=== PATIENT | female | born 1980 | race Caucasian/White ===

== ENCOUNTER → 2019-02-09 | Outpatient (REF) | payer BC ==
[2019-02-09 19:01] LABS: APPEARANCE, URINE CLEAR (CLEAR); BACTERIA, URINE AUTO NEGATIVE (NEGATIVE); BILIRUBIN, URINE AUTO NEGATIVE (NEGATIVE); BLOOD, URINE BLOOD NEGATIVE (NEGATIVE); COLOR, URINE STRAW (YELLOW); GLUCOSE, URINE (UA) AUTO NEGATIVE (NEGATIVE); KETONE, URINE AUTO TRACE mg/dL (NEGATIVE); LEUKOCYTE ESTERASE, URINE AUTO TRACE (NEGATIVE); NITRITE, URINE AUTO NEGATIVE (NEGATIVE); PROTEIN, URINE AUTO NEGATIVE (NEGATIVE); RBC, URINE AUTO 2 /HPF (0-3); SPECIFIC GRAVITY URINE AUTO 1.001 (1.002-1.035); SQUAMOUS EPITHELIAL CELL UR AU 1 /HPF (0-6); UROBILINOGEN, URINE AUTO 0.2 mg/dL (0.0-2.0); WBC, URINE AUTO 2 /HPF (0-3)
== END ==
LOC: M LAB REF 16:35
PROVIDERS: ATTEND Nurse Practitioner Women's Health
DX: N39.0 Urinary tract infection, site not specified (principal)

== ENCOUNTER → 2019-08-30 | Outpatient (CLI) | payer OTHER ==
--- NOTE | 2019-08-30 11:34 | REP ---
FIRST [facility]IME[facility] EMERGENCY OBSTETRIC SONOGRAPHY: HISTORY: Supervision of , evaluate for mass. Lower abdominal pain. No comparison study. FINDINGS: Transabdominal and transvaginal scanning are performed. Imaging confirms the presence of a living intrauterine single gestation. The embryonic pole measures 3 mm in crown-rump length. This corresponds with a gestational age estimate of 5 weeks 6 days. heart rate is recorded at 114 beats per minute. No subchorionic hemorrhage is seen. There is a 4.0 cm cyst in the maternal left adnexa. A 2.5 cm cystic area is seen in the right adnexa. No free fluid. No mass lesion is seen. IMPRESSION: Viable single intrauterine gestation at 5 weeks 6 days by crown-rump length. [place] by sonography April 25, 2020. 4.0 cm cyst in the left adnexa and 2.5 cm cyst in the right adnexa. Electronically Signed by Marcelino Sesay MD 08/30/2019 01:07 P
== END ==
LOC: M RAD 10:14
PROVIDERS: ATTEND Nurse Practitioner Family
DX: Z32.01 Encounter for pregnancy test, result positive (principal); Z3A.01 Less than 8 weeks gestation of pregnancy

== ENCOUNTER 2021-07-03 09:39 | Emergency (ER) | payer OTHER ==
[~2021-07-03] VITALS: Ht 182.9 cm; Wt 77.4 kg
[2021-07-03 10:18] LABS: BASO # 0.1 10^3/uL (0.0-0.2); BASO % 1.5 % (0.0-1.0); EOS # 0.1 10^3/uL (0.0-0.5); EOS % 1.4 % (0.0-3.0); LYMPH # 2.1 10^3/uL (1.5-5.0); LYMPH % 23.5 % (24.0-44.0); MEAN CORPUSCULAR HEMOGLOBIN 28.9 pg (27.0-33.0); MEAN CORPUSCULAR HGB CONC 31.6 g/dl (32.0-36.5); MEAN CORPUSCULAR VOLUME 91.6 fl (80.0-96.0); MONO # 0.6 10^3/uL (0.0-0.8); MONO % 6.4 % (2.0-8.0); NEUTROPHILS # 5.7 10^3/uL (1.5-8.5); NEUTROPHILS % 65.8 % (36.0-66.0); RED BLOOD COUNT 4.15 10^6/uL (4.00-5.40); WHITE BLOOD COUNT 8.7 10^3/uL (4.0-10.0)
[2021-07-03 10:34] LABS: PLATELET COUNT, AUTOMATED 2137 10^3/uL (150-450)
[2021-07-03 10:51] LABS: BLOOD UREA NITROGEN 7 MG/DL (7-18); CALCIUM LEVEL 9.4 MG/DL (8.5-10.1); CARBON DIOXIDE LEVEL 29 MEQ/L (21-32); CHLORIDE LEVEL 102 MEQ/L (98-107); CREATININE FOR GFR 0.76 MG/DL (0.55-1.30); GLOMERULAR FILTRATION RATE > 60.0 (>58); GLUCOSE, FASTING 92 MG/DL (70-100); POTASSIUM SERUM 5.2 MEQ/L (3.5-5.1); SODIUM LEVEL 134 MEQ/L (136-145)
[2021-07-03 11:38] LABS: HCG, SERUM QUALITATIVE NEGATIVE (NEGATIVE)
[2021-07-03] MEDS ORDERED: NS 1,000 ML IV ONE (12:00)
[2021-07-03 12:17] LABS: APPEARANCE, URINE CLEAR (CLEAR); BACTERIA, URINE AUTO 1+ (NEGATIVE); BILIRUBIN, URINE AUTO NEGATIVE (NEGATIVE); BLOOD, URINE BLOOD 2+ (NEGATIVE); COLOR, URINE RED (YELLOW); GLUCOSE, URINE (UA) AUTO NEGATIVE (NEGATIVE); KETONE, URINE AUTO NEGATIVE (NEGATIVE); LEUKOCYTE ESTERASE, URINE AUTO NEGATIVE (NEGATIVE); NITRITE, URINE AUTO NEGATIVE (NEGATIVE); PROTEIN, URINE AUTO 2+ mg/dL (NEGATIVE); RBC, URINE AUTO 78 /HPF (0-3); SPECIFIC GRAVITY URINE AUTO 1.004 (1.002-1.035); SQUAMOUS EPITHELIAL CELL UR AU 0 /HPF (0-6); UROBILINOGEN, URINE AUTO 0.2 mg/dL (0.0-2.0); WBC, URINE AUTO 6 /HPF (0-3)
[2021-07-03] MEDS ORDERED: LIDOCAINE 1% MDV 20ML VIAL As Ordered ONE (13:27)
[2021-07-03] MEDS ORDERED: LIDOCAINE 1% MDV 20ML VIAL SC ONE (13:30)
[2021-07-03 15:21] VITALS: BP 111/71
== END 2021-07-03 15:34 | disposition home or self-care (01) ==
LOC: M ED 09:39
DX: N99.820 Postprocedural hemorrhage of a genitourinary system organ or structure following a genitourinary system procedure (principal); N93.9 Abnormal uterine and vaginal bleeding, unspecified; R94.31 Abnormal electrocardiogram [ECG] [EKG]; Z88.1 Allergy status to other antibiotic agents

== ENCOUNTER → 2021-07-11 | Outpatient (REF) | payer OTHER ==
[2021-07-11 17:03] LABS: APPEARANCE, URINE CLEAR (CLEAR); BACTERIA, URINE AUTO NEGATIVE (NEGATIVE); BILIRUBIN, URINE AUTO NEGATIVE (NEGATIVE); BLOOD, URINE BLOOD 2+ (NEGATIVE); COLOR, URINE STRAW (YELLOW); GLUCOSE, URINE (UA) AUTO NEGATIVE (NEGATIVE); KETONE, URINE AUTO NEGATIVE (NEGATIVE); LEUKOCYTE ESTERASE, URINE AUTO 3+ (NEGATIVE); MUCUS, URINE SMALL (NEGATIVE); NITRITE, URINE AUTO NEGATIVE (NEGATIVE); PROTEIN, URINE AUTO NEGATIVE (NEGATIVE); RBC, URINE AUTO 3 /HPF (0-3); SPECIFIC GRAVITY URINE AUTO 1.001 (1.002-1.035); SQUAMOUS EPITHELIAL CELL UR AU 0 /HPF (0-6); UROBILINOGEN, URINE AUTO 0.2 mg/dL (0.0-2.0); WBC, URINE AUTO 18 /HPF (0-3)
== END ==
LOC: M LAB REF 16:20
PROVIDERS: ATTEND Obstetrics & Gynecology
DX: N39.0 Urinary tract infection, site not specified (principal)

== ENCOUNTER → 2022-08-26 | Outpatient (CLI) | payer OTHER | LOC: M WHC 10:51 | PROVIDERS: ATTEND Physician Assistant | DX: N64.4 Mastodynia (principal); Z80.3 Family history of malignant neoplasm of breast ==

== ENCOUNTER → 2023-11-10 | Outpatient (REF) | payer OTHER | LOC: M SFHCWAGY 09:58 | PROVIDERS: ATTEND Nurse Practitioner Family | DX: Z12.4 Encounter for screening for malignant neoplasm of cervix (principal); Z11.51 Encounter for screening for human papillomavirus (HPV) ==

== ENCOUNTER → 2024-03-30 | Outpatient (CLI) | payer OTHER | LOC: M WHC 07:52 | PROVIDERS: ATTEND Nurse Practitioner Family | DX: Z12.31 Encounter for screening mammogram for malignant neoplasm of breast (principal); R92.333 Mammographic heterogeneous density, bilateral breasts ==

== ENCOUNTER → 2024-12-18 | Outpatient (CLI) | payer BC ==
[~2024-12-18] MED LIST: HYDR500C3 PO; NALT50TA4
== END ==
LOC: M RAD 08:29
PROVIDERS: ATTEND Specialist
DX: Z00.00 Encounter for general adult medical examination without abnormal findings (principal)

== ENCOUNTER → 2024-12-25 | Outpatient (CLI) | payer BC ==
[~2024-12-25] MED LIST changes: +ACAM0.05; +VITA100093
[2024-12-25 13:43] LABS: ESTRADIOL 21.1 PG/ML; PROLACTIN 5.15 NG/ML
[2024-12-25 13:44] LABS: LUTEINIZING HORMONE 29.1 mIU/ML; PROGESTERONE 0.34 NG/ML
[2024-12-27 15:43] LABS: HPV APTIMA Not Detected (Not Detected)
== END ==
LOC: M PLALAB 10:16
PROVIDERS: ATTEND Nurse Practitioner Family
DX: N91.1 Secondary amenorrhea (principal); Z12.4 Encounter for screening for malignant neoplasm of cervix; Z77.9 Other contact with and (suspected) exposures hazardous to health; R87.610 Atypical squamous cells of undetermined significance on cytologic smear of cervix (ASC-US)

== ENCOUNTER → 2025-01-04 | Outpatient (CLI) | payer BC ==
[~2025-01-04] MED LIST changes: +LIDOCAINE 1% MDV 20 ML VIAL SC STA
[2025-01-04 12:15] VITALS: TEMP 98.4
[2025-01-04 12:59] LABS: BASO # 0.1 10^3/uL (0.0-0.2); BASO % 1.6 % (0.0-1.0); EOS # 0.0 10^3/uL (0.0-0.5); EOS % 0.8 % (0.0-3.0); LYMPH # 1.5 10^3/uL (1.5-5.0); LYMPH % 30.3 % (24.0-44.0); MONO # 0.4 10^3/uL (0.0-0.8); MONO % 7.7 % (2.0-8.0); NEUTROPHILS # 2.9 10^3/uL (1.5-8.5); NEUTROPHILS % 58.6 % (36.0-66.0)
[2025-01-04 13:10] LABS: PLATELET COUNT, AUTOMATED 1136 10^3/uL (150-450)
[2025-01-04 13:14] VITALS: BP 129/81; O2SAT 98
== END ==
LOC: M IRPRO 12:04
PROVIDERS: ATTEND Specialist
DX: D69.3 Immune thrombocytopenic purpura (principal)

== ENCOUNTER → 2025-04-02 | Outpatient (CLI) | payer OTHER ==
[~2025-04-02] MED LIST changes: +ASPI81CH33 PO; -LIDOCAINE 1% MDV 20 ML VIAL SC STA; +VIVI380I
== END ==
LOC: M WHC 16:25
PROVIDERS: ATTEND Surgery
DX: Z12.31 Encounter for screening mammogram for malignant neoplasm of breast (principal); Z91.89 Other specified personal risk factors, not elsewhere classified; R92.333 Mammographic heterogeneous density, bilateral breasts

== ENCOUNTER → 2025-05-18 | Outpatient (CLI) | payer OTHER | LOC: M PLALAB 12:28 | PROVIDERS: ATTEND Surgery | DX: Z91.89 Other specified personal risk factors, not elsewhere classified (principal) ==